=== PATIENT | female | born 1985 | race Caucasian/White ===

== ENCOUNTER 2018-06-10 13:03 | Emergency (ER) | payer MEDICAID ==
[2018-06-10] MEDS: IBUPROFEN 600 MG TAB PO (14:10)
== END 2018-06-10 15:46 | disposition home or self-care (01) ==
LOC: FTE 13:03
DX: M25.562 Pain in left knee (principal); J45.909 Unspecified asthma, uncomplicated
CPT/HCPCS: 73562; 99283-25